=== PATIENT | male | born 1975 ===

== ENCOUNTER 2019-05-10 01:29 | Emergency (ER) | payer SELFPAY ==
[2019-05-10 01:52] VITALS: BP 118/78; PULSE 98; RESP 16; TEMP 98.1
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
--- NOTE | 2019-07-14 22:46 | ED ---
Medical Decision Making - Medical Decision Making Physical exam not able to be performed by patient as he eloped prior to admission. Disposition Clinical Impression: Chronic pain due to injury Disposition: Left Against Medical Advice Condition: Undetermined Is patient prescribed a controlled substance at d/c from ED?: No Referrals: None,Stated [Primary Care Provider] - 1-2 days
== END 2019-05-10 02:10 | disposition left against medical advice (07) ==
LOC: EC 01:29
DX: G89.29 Other chronic pain (principal); F17.200 Nicotine dependence, unspecified, uncomplicated; Z88.8 Allergy status to other drugs, medicaments and biological substances
CPT/HCPCS: 99283